=== PATIENT | male | born 1990 | race Caucasian/White ===

== ENCOUNTER 2023-02-18 13:36 | Emergency (ER) | payer BC, SELFPAY ==
--- NOTE | ~2023-02-18 | XR_ITS ---
EXAMINATION: XR chest 2V DATE: 02/18/2023 14:34 INDICATION: Chest pain TECHNIQUE: PA and lateral views of the chest are obtained. COMPARISON: 05/25/2008 FINDINGS: The lungs are free of acute opacities. No pleural effusion or pneumothorax. The cardiomedia stinal silhouette is normal. The visualized bones and soft tissues are unremarkable. IMPRESSION: 1. No acute cardiopulmonary abnormality. Reviewed, dictated and finalized at location A.
[2023-02-18 13:40] VITALS: BP 158/93; PULSE 86; RESP 20; TEMP 37.2; O2SAT 96
--- NOTE | 2023-02-18 13:40 | ECG_ITS ---
Measurements Intervals [place] Rate: 83 P: 10 MS: 162 QRS: 63 QRSD: 89 T: 25 QT: 350 QTc: 411 Interpretive Statements SINUS RHYTHM NO PREVIOUS ECG AVAILABLE FOR COMPARISON Electronically Signed On 02-18-2023 17:09:34 CDT by Palma Higgins M.D.
--- NOTE | 2023-02-18 14:02 | ED.AMS ---
HPI - Altered Mental Status General Chief Complaint: Altered Mental Status Stated Complaint: AMS Time Seen by Provider: 02/18/23 13:39 History of Present Illness HPI narrative: Patient is a 32-year-old male with a history of hypertension, hyperlipidemia presenting with chest discomfort. Patient states that he has felt generally off for the last couple of weeks. States that he has been intermittently lightheaded with bilateral hand tingling. States that today he developed chest pain that then turned into pressure. States he called EMS due to this discomfort. Currently, he states that he still has some discomfort in the center of his chest. Denies shortness of breath. States that he recently had an EGD and had his esophagus dilated. He denies fevers or chills, headache, focal weakness or numbness, speech difficulties, abdominal pain, nausea or vomiting, diarrhea, dysuria, hematuria, leg swelling. Related Data Allergies Allergy/AdvReac Type Severity Reaction Status Date / Time ibuprofen Allergy Mild Swelling Verified 02/18/23 14:22 of Lip/Tongue/Throat Review of Systems Review of Systems: All systems reviewed & are unremarkable except as noted in HPI and below Exam Narrative: GENERAL: Well-appearing, well-nourished, and in no acute distress. HEAD: Normocephalic, atraumatic. EYES: PERRLA and EOMI. ENT: Nares clear, no rhinorrhea or epistaxis. Mucous membranes moist. NECK: Supple. CHEST: Clear to auscultation. No respiratory distress. HEART: Regular rate and rhythm. No murmur heard. No chest wall tenderness ABDOMEN: Soft, nontender, nondistended EXTREMITIES: Normal range of motion. No edema. SKIN: Warm, dry, no rash. NEURO: No focal deficits. Alert and oriented x3. PSYCH: Normal mood and affect. Course Vital Signs Vital signs: Vital Signs Temperature 98.9 F 02/18/23 13:40 Pulse Rate 86 02/18/23 13:40 Respiratory Rate 20 02/18/23 13:40 Blood Pressure 158/93 H 02/18/23 13:40 Pulse Oximetry 96 02/18/23 13:40 Temperature 98.9 F 02/18/23 13:40 Pulse Rate 84 02/18/23 16:00 Respiratory Rate 16 02/18/23 16:00 Blood Pressure 132/76 02/18/23 16:00 Pulse Oximetry 98 02/18/23 16:00 MDM - Altered Mental Status MDM Narrative Medical decision making narrative: Patient is a 32-year-old male presenting with chest discomfort. Patient is hypertensive, his vitals are within normal limits. Exam is remarkable for the above. EKG per my interpretation shows normal sinus rhythm, normal axis and intervals, no ST elevations or depressions. Blood work is unremarkable. Troponin is undetectable. Chest x-ray shows no acute abnormalities. Patient was given a GI cocktail and IV Pepcid. On reevaluation, the patient states that his pain has resolved. He is asking to go home. States that he has an appointment with his PCP tomorrow afternoon. Advised that he keep this appointment. Also advised that he follow-up closely with his GI doc who performed the esophageal dilatation. Appropriate return precautions given. Patient voiced understanding and is agreeable with plan. Discharged in stable condition. Differential Diagnosis Differential diagnosis: Likely altered mental status, hypoglycemia and other (chest pain, GERD) Medical Records Attestation: I reviewed the patient's medical records. Lab Data Attestation: I reviewed the patient's lab results. 02/18/23 14:55 02/18/23 14:54 Labs: Lab Results 02/18/23 02/18/23 02/18/23 Range/Units 14:54 14:55 18:00 WBC 6.5 (4.5-10.0) K/mm3 RBC 4.66 (4.6-6.20) M/mm3 Hgb 14.3 (14.0-18.0) g/dL Hct 40.8 L (42.0-52.0) % MCV 87.6 (80-100) fl MCH 30.7 (26-34) pg MCHC 35.0 (32-36) g/dl RDW 12.1 (11.5-14.5) % Plt Count 221 (150-375) k/mm3 MPV 10.2 (7.4-10.4) fl Immature Gran % (Auto) 0.3 (0-0.5) % Neut % (Auto) 67.5 (45.5-73.1) % Lymph % (Auto) 22.5 (18.3-
--- NOTE | 2023-02-18 14:07 | PC.NURSE ---
Dr. Forrest at bedside to assess pt.
[2023-02-18] MEDS: SODIUM CHLORIDE 0.9% IV 1,000 ML 999 ML IV CONT (14:20)
[2023-02-18] MEDS: FAMOTIDINE 20 MG/2 ML VIAL IV PUSH (14:20)
[2023-02-18] MEDS: BELLADONNA ALK/PHENOB ELIX 10 ML, MAG HYDROX/ALUMINUM HYD/SIMETH 30 ML, LIDOCAINE HCL 2... PO (14:21)
[2023-02-18 15:03] LABS: Basophils Percent Auto 0.5 % (0.2-1.2); Eosinophils Percent Auto 0.5 % (0-4.4); Hematocrit 40.8 % (42.0-52.0); Hemoglobin 14.3 g/dL (14.0-18.0); Immature Granulocyte Absolute 0.02 K/mm3 (0.00-0.031); Immature Granulocyte Percent A 0.3 % (0-0.5); Lymphocytes Absolute Auto 1.47 K/mm3 (0.9-3.2); Lymphocytes Percent Auto 22.5 % (18.3-44.2); Mean Corpuscular Hemoglobin 30.7 pg (26-34); Mean Corpuscular Volume 87.6 fl (80-100); Mean Platelet Volume 10.2 fl (7.4-10.4); Monocytes Absolute Auto 0.6 K/mm3 (0.1-0.6); Monocytes Percent Auto 8.7 % (2.6-8.5); Neutrophils Absolute Auto 4.4 K/mm3 (1.3-6.7); Neutrophils Percent Auto 67.5 % (45.5-73.1); Platelet Count Result 221 k/mm3 (150-375); Red Blood Count 4.66 M/mm3 (4.6-6.20); Red Cell Distribution Width 12.1 % (11.5-14.5); White Blood Count 6.5 K/mm3 (4.5-10.0)
[2023-02-18 15:13] LABS: Alanine Aminotransferase 40 U/L (6-50); Albumin Level 4.4 g/dL (3.5-5.1); Alkaline Phosphatase 84 U/L (38-126); Anion Gap 4 mmol/L (8-16); Aspartate Amino Transferase 41 U/L (17-59); Bilirubin,Total 0.4 mg/dL (0.2-1.3); Blood Urea Nitrogen 8 mg/dL (9-20); Calcium 8.5 mg/dL (8.4-10.2); Carbon Dioxide 28 mmol/L (22-30); Chloride 103 mmol/L (98-107); Estimated CRCL calculation 167 ml/min; Estimated Glomerular Filt Rate > 60; Glucose 103 mg/dL (65-110); Lipase 86 U/L (23-300); Magnesium 2.1 mg/dL (1.6-2.3); Potassium 4.1 mmol/L (3.4-5.0); Sodium 135 mmol/L (137-145)
[2023-02-18 15:26] LABS: Troponin I < 0.012 ng/mL (0.000-0.034)
[2023-02-18 16:00] VITALS: BP 132/76; PULSE 84; RESP 16; O2SAT 98
== END 2023-02-18 16:00 | disposition home or self-care (01) ==
PROVIDERS: Emergency Provider Emergency Medicine
DX: R07.89 Other chest pain (principal); I10 Essential (primary) hypertension; E78.5 Hyperlipidemia, unspecified
CPT/HCPCS: 36415; 71046; 80053; 83690; 83735; 84484; 85025; 93005; 96361; 96374; 99284; A9270; J7030

== ENCOUNTER 2023-12-08 10:30 | Emergency (ER) | payer BC, SELFPAY ==
[2023-12-08 10:48] VITALS: BP 159/78; PULSE 87; RESP 19; TEMP 36.4; O2SAT 99
--- NOTE | 2023-12-08 13:10 | PC.NURSE ---
no answer for room at 1310
--- NOTE | 2023-12-08 13:45 | PC.NURSE ---
no answer at this time x3
== END 2023-12-08 14:12 | disposition left against medical advice (07) ==
DX: R42 Dizziness and giddiness (principal)
CPT/HCPCS: 99199